=== PATIENT | female | born 1995 | race Caucasian/White ===

== ENCOUNTER 2016-10-28 11:08 | Emergency (ER) | payer OTHER ==
[2016-10-28] MEDS ORDERED: NS 1,000 ML IV ONE ×2 (11:39→12:22)
[2016-10-28] MEDS ORDERED: ONDANSETRON 4 MG/2 ML VIAL IVP ONE ×2 (11:39→14:03)
[2016-10-28 11:47] LABS: % IMMATURE GRANULYOCYTES 0.5 % (0.0-1.1); ABSOLUTE IMMATURE GRANULOCYTES 0.03 10^3/uL (0.00-0.10); ADD DIFF? NO; ADD MORPH? NO; ADD SCAN? NO; ATYPICAL LYMPHOCYTE FLAG 0 (0-99); FRAGMENT RBC FLAG 0 (0-99); HEMOGLOBIN 17.1 g/dL (12.6-16.3); LEFT SHIFT FLG 30 (0-99); LIPEMIA HEMOLYSIS FLAG 90 (0-99); MEAN CELL HEMOGLOBIN 32.3 pg (27.9-34.1); MEAN CELL HEMOGLOBIN CONCENTR. 35.6 g/dL (32.4-36.7); MEAN CELL VOLUME 90.6 fL (81.5-99.8); PLATELET CLUMPS FLAG 0 (0-99); PLATELET COUNT 228 10^3/uL (150-400); RED CELL DISTRIBUTION WIDTH 11.8 % (11.5-15.2)
[2016-10-28 12:07] LABS: ANION GAP 17 mEq/L (8-16); CALCIUM 9.6 mg/dL (8.5-10.4); CARBON DIOXIDE 17 mEq/l (22-31); CHLORIDE 102 mEq/L (97-110); CREATININE 1.1 mg/dL (0.6-1.0); GLOMERULAR FILTRATION RATE > 60; GLUCOSE 90 mg/dL (70-100); POTASSIUM 3.6 mEq/L (3.5-5.2); SODIUM 136 mEq/L (134-144)
[2016-10-28] MEDS ORDERED: ACETAMINOPHEN 500 MG TAB PO ONE (12:22)
[2016-10-28] MEDS ORDERED: ACETAMINOPHEN 500 MG TAB ONE (12:22)
--- NOTE | 2016-10-28 12:23 | EDPHY ---
HPI/HX/ROS/PE/MDM Narrative: CHIEF COMPLAINT: N/V/D HPI: The patient is a 21-year-old female who complains of three days of nausea, vomiting, and diarrhea. The patient reports generalized abdominal pain with diffuse myalgias. Patient states she has felt febrile with aches and chills. She did not eat anything out of the ordinary. No recent travel. 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 LMP 10/09/16. She went to Urgent Care and was sent here for further evaluation. She denies hematemesis or black tarry stools. REVIEW OF SYSTEMS: Aside from elements discussed in the HPI, a comprehensive 10-point review of systems was reviewed and is negative. PMH: Denies. 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 PHYSICAL EXAM: General: Patient is alert, in no acute distress. ENT: Eyes are normal to inspection. ENT inspection normal. Neck: Normal inspection. Full range of motion. Respiratory: No respiratory distress. Breath sounds normal bilaterally. Cardiovascular: Regular rate and rhythm. Strong peripheral pulses. Abdomen: Diffuse tenderness. No guarding or rebound. Back: Normal to inspection. No tenderness to palpation. Skin: Normal color. No rash. Warm and dry. Extremities: Normal appearance. Full range of motion. Neuro: Oriented x3. Normal motor function. Normal sensory function. ED Course: IV was established. Patient received 1L normal saline and 4mg Zofran IV. Plan to check electrolytes and basic lab work. Patient ambulated to use restroom and felt dizzy with shortness of breath. She received a second liter of fluid, IV Toradol, and 1000 mg Tylenol PO. WBC is normal. Lab work is otherwise unremarkable. Stool sample sent. The patient was signed out to Dr. Torres at shift change. Pt still requiring symptomatic treatment. - Data Points Laboratory Results: Laboratory Results 10/28/16 12:40 10/28/16 12:40 10/28/16 10/28/16 12:40 12:40 WBC 5.94 10^3/uL 10^3/uL (3.80-9.50) RBC 5.30 10^6/uL 10^6/uL (4.18-5.33) Hgb 17.1 g/dL H g/dL (12.6-16.3) Hct 48.0 % H % (38.0-47.0) MCV 90.6 fL fL (81.5-99.8) MCH 32.3 pg pg (27.9-34.1) MCHC 35.6 g/dL g/dL (32.4-36.7) RDW 11.8 % % (11.5-15.2) Plt Count 228 10^3/uL 10^3/uL (150-400) MPV 9.0 fL fL (8.7-11.7) Neut % (Auto) 63.7 % % (39.3-74.2) Lymph % (Auto) 17.8 % % (15.0-45.0) [place] % (Auto) 15.7 % H % (4.5-13.0) Eos % (Auto) 2.0 % % (0.6-7.6) Baso % (Auto) 0.3 % % (0.3-1.7) Nucleat RBC Rel Count 0.0 % % (0.0-0.2) Absolute Neuts (auto) 3.78 10^3/uL 10^3/uL (1.70-6.50) Absolute Lymphs (auto) 1.06 10^3/uL 10^3/uL (1.00-3.00) Absolute Monos (auto) 0.93 10^3/uL H 10^3/uL (0.30-0.80) Absolute Eos (auto) 0.12 10^3/uL 10^3/uL (0.03-0.40) Absolute Basos (auto) 0.02 10^3/uL 10^3/uL (0.02-0.10) Absolute Nucleated RBC 0.00 10^3/uL 10^3/uL (0-0.01) Immature Gran % 0.5 % % (0.0-1.1) Immature Gran # 0.03 10^3/uL 10^3/uL (0.00-0.10) Sodium 136 mEq/L mEq/L (134-144) Potassium 3.6 mEq/L mEq/L (3.5-5.2) Chloride 102 mEq/L mEq/L (97-110) Carbon Dioxide 17 mEq/l L mEq/l (22-31) Anion Gap 17 mEq/L H mEq/L (8-16) BUN 14 mg/dL mg/dL (7-23) Creatinine 1.1 mg/dL H mg/dL (0.6-1.0) Estimated GFR > 60 Glucose 90 mg/dL mg/dL (70-100) Calcium 9.6 mg/dL mg/dL (8.5-10.4) Medications Given: Discontinued Medications Acetaminophen (Tylenol) 1,000 mg PO EDNOW ONE Stop: 10/28/16 12:23 Last Admin: 10/28/16 12:30 Dose: 1,000 mg Sodium Chloride (Ns) 1,000 mls @ 0 mls/hr IV ONCE ONE PRN Reason: Wide Open Stop: 10/28/16 11:40 Last Admin: 10/28/16 11:50 Dose: 1,000 mls Sodium Chloride (Ns) 1,000 mls @ 0 mls/hr IV ONCE ONE PRN Reason: Wide Open Stop: 10/28/16 12:23 Last Admin: 10/28/16 12:30 Dose: 1,000 mls Ketorolac Tromethamine (Toradol) 15 mg IVP EDNOW ONE Stop: 10/28/16 12:37 Last Admin: 10/28/16 12:44 Dose: 15 mg Ondansetron HCl (Zofran) 4 mg IVP EDNOW ONE Stop: 10/28/16 11:40 Last Admin: 10/28/16 11:51 Dose: 4 mg Ondansetron HCl (Zofran) 4 mg IVP EDNOW ONE Stop: 10/28/16 14:04 Last Admin: 10/28/16 14:22 Dose: 4 mg General Time Seen by Provider: 10/28/16 11:52 Initial Vital Signs: Initial Vital Signs Temperature (C) 36.3 C 10/28/16 11:16 Heart Rate 102 H 10/28/16 11:16 Respiratory Rate 22 H 10/28/16 11:16 Blood Pressure 114/73 10/28/16 11:16 O2 Sat (%) 99 10/28/16 11:16 O2 Delivery Mode Room Air Allergies/Adverse Reactions: No Known Allergies Allergy (Unverified 10/28/16 11:16) Home Medications: Medication Instructions Recorded Escitalopram Oxalate 10/28/16 Departure - Departure Disposition: Home, Routine, Self-Care Clinical Impression: Gastroenteritis Condition: Good Instructions: Gastroenteritis (ED) Additional Instructions: Drink plenty of fluids. I recommend a clear liquid diet for the next 24 hours with gradual diet advancement. Please followup with your primary care physician with new or worsening symptoms. Referrals: KRISTOPHER,DOCTOR [Other] - As per Instructions Report Scribed for: Ata Talavera Report Scribed by: Lamar Elizabeth Date of Report: 10/28/16 Time of Report: 12:23 Physician Review and Approval Statement: Portions of this note were transcribed by a certified medical transcriptionist. I personally performed a history, physical exam, medical decision making, and confirmed accuracy of information the transcribed note.
[2016-10-28] MEDS ORDERED: KETOROLAC 30 MG/1 ML SDV IVP ONE (12:36)
[2016-10-28 14:03] VITALS: PULSE 68
[2016-10-28] MEDS ORDERED: ONDANSETRON 4MG PREPACK#2 BTL TAKEHOME ONE (15:40)
[2016-10-28 15:45] VITALS: BP 103/58; RESP 14; TEMP 99.1; O2SAT 95
== END 2016-10-28 15:59 | disposition home or self-care (01) ==
DX: K52.9 Noninfective gastroenteritis and colitis, unspecified (principal)
CPT/HCPCS: 96374; J1885; J2405

== ENCOUNTER 2017-04-15 16:31 | Inpatient (IN) | payer OTHER ==
[2017-04-15] MEDS ORDERED: ONDANSETRON 4 MG/2 ML VIAL IVP PRN (17:14)
[2017-04-15] MEDS ORDERED: ACETAMINOPHEN 325 MG TAB PO PRN (17:14)
[2017-04-15] MEDS ORDERED: ONDANSETRON DISINTEGRATING 4 MG TAB PO PRN (17:14)
[2017-04-15] MEDS ORDERED: diphenhydrAMINE 25 MG CAP PO PRN (17:14)
[2017-04-15 18:09] LABS: % IMMATURE GRANULYOCYTES 0.4 % (0.0-1.1); ABSOLUTE IMMATURE GRANULOCYTES 0.04 10^3/uL (0.00-0.10); ADD DIFF? NO; ADD MORPH? NO; ADD SCAN? NO; ATYPICAL LYMPHOCYTE FLAG 0 (0-99); FRAGMENT RBC FLAG 0 (0-99); HEMATOCRIT 39.1 % (38.0-47.0); HEMOGLOBIN 13.6 g/dL (12.6-16.3); LEFT SHIFT FLG 0 (0-99); LIPEMIA HEMOLYSIS FLAG 90 (0-99); MEAN CELL HEMOGLOBIN 32.4 pg (27.9-34.1); MEAN CELL HEMOGLOBIN CONCENTR. 34.8 g/dL (32.4-36.7); MEAN CELL VOLUME 93.1 fL (81.5-99.8); MEAN PLATELET VOLUME 8.9 fL (8.7-11.7); PLATELET CLUMPS FLAG 0 (0-99); PLATELET COUNT 232 10^3/uL (150-400); RED CELL DISTRIBUTION WIDTH 11.9 % (11.5-15.2)
[2017-04-15 18:26] LABS: ALANINE AMINOTRANSFERASE 26 IU/L (9-52); ALBUMIN 3.7 g/dL (3.5-5.0); ALKALINE PHOSPHATASE 82 IU/L (38-126); ANION GAP 13 mEq/L (8-16); ASPARTATE AMINOTRANSFERASE 17 IU/L (14-46); BILIRUBIN,TOTAL 0.5 mg/dL (0.1-1.4); CALCIUM 9.2 mg/dL (8.5-10.4); CARBON DIOXIDE 25 mEq/l (22-31); CHLORIDE 104 mEq/L (97-110); CREATININE 0.9 mg/dL (0.6-1.0); GLOMERULAR FILTRATION RATE > 60; GLUCOSE 91 mg/dL (70-100); SODIUM 142 mEq/L (134-144); TOTAL PROTEIN 6.7 g/dL (6.3-8.2)
[2017-04-15] MEDS: VANCOMYCIN 1.25 GM in D5W 250 ML IV SCH (18:26)
--- NOTE | 2017-04-15 23:28 | GCON ---
[f rep st] CONSULTATION CHIEF COMPLAINT: Left elbow pain, swelling and redness. HISTORY OF PRESENT ILLNESS: The patient is a 21-year-old female who presented to [facility] today, 04/15/2017, with complaints of increased pain, swelling and redness over her left elbo w. She reports that she noticed these symptoms on 04/12/2017, and they have progressively gotten wor se. She was seen at the [facility] today where they did try to aspirate her left elb ow, but were unsuccessful. She was given a shot of Rocephin 1 g and also written for a script for Ba ctrim. At the Urgent Care visit, she was diagnosed with a staph infection of the left elbow, left bu ttock and right hamstring. She states that she does feel feverish and has chills. She was examined in Urgent Care by myself and Dr. Kirby who then made a plan to do a direct admit to [facility] and start her on IV antibiotics. PAST MEDICAL HISTORY: Unremarkable. PAST SURGICAL HISTORY: [place] teeth extraction at age 17. CURRENT MEDICATIONS: control daily and citalopram 40 mg every day. ALLERGIES: Vicodin, dizzy and nausea. SOCIAL HISTORY: Patient is a non-cigarette smoker. She drinks 1 alcoholic beverage per week. No re creational drug use. FAMILY HISTORY: Noncontributory. REVIEW OF SYSTEMS: A 10-point review was done. Negative for any other complaints, concerns or histo ry except for what was noted in HPI. PHYSICAL EXAMINATION: GENERAL: She is 6 feet tall, 155 pounds. Pleasant, NAD. HEENT: NC/AT. EOM I, PERRLA. Ears and nares patent without discharge. Oropharynx is clear. NECK: Nontender to palpa tion. Full range of motion. MUSCULOSKELETAL: Left elbow: There is swelling and erythema present ov er the olecranon with a pustule present. She does have tenderness to palpation throughout the left e lbow and pain with range of motion of the left elbow. There is also a noted area of erythema about a quarter in size on her left buttock and her right hamstring, both of which have a pustule. She has normal sensation to light touch in the left upper extremity. Distal pulses present left upper extrem ity. SKIN: Warm, dry and intact. Areas of erythema that are noted above. NEUROLOGIC: Nonfocal. No deficits noted. PSYCHIATRIC: Alert and oriented x3. Appropriate mood and affect. RADIOGRAPHS: X-rays were taken today of the left elbow and are unremarkable. IMPRESSION: Left septic elbow. PLAN: Patient was seen and examined by myself and Dr. Kirby, and admitted to [facility]. Dr. Kirby did eleazar k to the Infectious Disease doctor and we are starting her on IV vancomycin 1.25 g every 12 hours. A ll questions were answered to the patient's satisfaction. We did discuss with the patient that if he r elbow does not improve on the IV antibiotics, we will have to take her to the operating room for an irrigation and debridement. The patient does understand this. /[id number]/MODL
[2017-04-15] MEDS: OXYCODONE/APAP 5/325 TAB PO PRN (23:41)
[2017-04-15] MEDS: CITALOPRAM 20 MG TAB PO SCH (23:41)
[2017-04-16] MEDS: NS W/ 20 KCl/L 1,000 ML IV SCH ×2 (00:37→20:28)
[2017-04-16] MEDS: VANCOMYCIN 1.25 GM in D5W 250 ML IV SCH ×2 (04:49→17:07)
[2017-04-16] MEDS: OXYCODONE/APAP 5/325 TAB PO PRN ×4 (04:49→19:54)
--- NOTE | 2017-04-16 07:34 | SOAPPROG ---
SOAP Progress Note Assessment/Plan: Assessment: Left elbow infection Plan: Patients left elbow was cultured today and sent to the lab F/U on cultures Continue IV antibiotics: Vanco Pain medicine as needed Ice/elevation left elbow Ortho to follow Subjective: Patient states that her left elbow is still painful but the pain is improving. The redness over the olecranon is still present but seems to be improving. Objective: Vital Signs Temp Pulse Resp BP Pulse Ox 37.4 C 92 16 91/45 L 93 04/16/17 04:00 04/16/17 04:00 04/16/17 04:00 04/16/17 04:00 04/16/17 04:00 Laboratory Results 04/15/17 18:00 04/15/17 18:00 04/15/17 04/16/17 04/17/17 05:59 05:59 05:59 Intake Total 900 Output Total 1150 Balance -250 Physical exam of the LUE: there is tenderness to palpation over the left elbow, decreased pain since yesterday. She is able to flex and extend her elbow with slight discomfort. Normal sensation to light touch in the LUE. Distal pulse present in the LUE. ICD10 Worksheet Patient Problems: Problems Problem Status Onset Infection of elbow Acute - ICD10 Problem Qualifiers (1) Infection of elbow
[2017-04-16] MEDS: DESOGESTREL ETHINYL ESTRADIOL PO SCH (08:37)
[2017-04-16] MEDS ORDERED: CITALOPRAM 20 MG TAB PO SCH (09:00)
--- NOTE | 2017-04-16 15:13 | ASMTCMCOM ---
CM Note CM Note Notes: Pt admitted from [facility] for an infection in her left elbow. Pt currently on IV Vancomycin. Per MD notes, cultures obtained and sent today. Pt lives here in [place]. Anticipate pt may be able to discharge home independently if elbow infection clears, if not, pt may require prolonged IV antibiotics. CM will cont to follow for any potential needs. Current discharge plan: TBD Date Signed: 04/16/2017 03:13 PM Electronically Signed By:Mable Roberts RN
[2017-04-16] MEDS: CITALOPRAM 20 MG TAB PO SCH (21:25)
[2017-04-17] MEDS: VANCOMYCIN 1.25 GM in D5W 250 ML IV SCH ×2 (05:07→17:25)
--- NOTE | 2017-04-17 07:17 | SOAPPROG ---
SOAP Progress Note Assessment/Plan: Assessment: Left elbow infection Plan: Patients left elbow was cultured today and sent to the lab Gram stain shows rare gram positive cocci, Cultures are still pending Continue IV antibiotics: Kristie Kirby did open the pustule/scab with an 11blade: only serous fluid was expressed Patient was placed in a posterior splint to limit range of motion Pain medicine as needed Ice/elevation left elbow Ortho to follow Subjective: Today the patient states that her left elbow is still painful but the pain is improving. She has decreased pain with Range of motion. There is still erythema over the olecranon but it does look better. Yesterday skin swab was taken of her left elbow and sent for gram stain and cultures. Objective: Vital Signs Temp Pulse Resp BP Pulse Ox 37.6 C 70 16 106/66 95 04/17/17 06:06 04/17/17 06:06 04/17/17 06:06 04/17/17 06:06 04/17/17 06:06 Microbiology 04/16/17 13:15 Gram Stain - Final Elbow - Swab Laboratory Results 04/15/17 18:00 04/15/17 18:00 04/16/17 04/17/17 04/18/17 05:59 05:59 05:59 Intake Total 900 1950 Output Total 1150 801 Balance -250 1149 Physical exam of the LUE: there is tenderness to palpation over the left elbow, decreased pain since a day ago She is able to flex and extend her elbow with decreased discomfort. There is a dime size pustule/scab formation on the tip of her olecranon. Normal sensation to light touch in the LUE. Distal pulse present in the LUE. Gram stain: rare gram positive cocci Culture: pending ICD10 Worksheet Patient Problems: Problems Problem Status Onset Infection of elbow Acute - ICD10 Problem Qualifiers (1) Infection of elbow
--- NOTE | 2017-04-17 07:30 | GCON ---
[f rep st] CONSULTATION INPATIENT INFECTIOUS DISEASE CONSULTATION REFERRING PHYSICIAN: Sheldon Kirby MD REASON FOR REFERRAL: Left elbow infection. HISTORY OF PRESENT ILLNESS: Patient is a 21-year-old female, who was in her usual state of good heal th until approximately 4 days ago. Patient noted that she went to a hot yoga class a couple of times in the last week, and beginning on 04/12, she started noticing increased pain, swelling, and redness just over her left elbow. She also developed 2 areas of inflammation on the backs of her upper thig hs close to her buttocks. Patient was seen at [facility] initially and an aspiration of the elbow was attempted but was unsuccessful. She was given an intramuscular dose of 1 g of ceft riaxone and given Bactrim orally. Patient followed up at [facility] and was seen by Dr. Kirby, who [facility] and began monotherapy with IV vancomycin . Currently, she is resting comfortably in her hospital bed. Her areas that are affected are exquis itely tender and she requires narcotic for pain relief. Otherwise, she is nontoxic appearing. PAST MEDICAL HISTORY: None. PAST SURGICAL HISTORY: Status post wisdom tooth extraction. ANTIBIOTICS: Vancomycin. ALLERGIES: The patient notes an allergy to Vicodin. 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 She denies any tobacc o use, only occasional alcoholic drink. No drug use. She is a [place] of [place], [place]. FAMILY HISTORY: Reviewed but noncontributory. REVIEW OF SYSTEMS: Other than that detailed above in the history of present illness, a comprehensive 10-system review is negative. PHYSICAL EXAMINATION: VITAL SIGNS: Temperature maximum was 37.9, temperature current is 37.2, heart rate, is 77, respiratory rate is 16, blood pressure is 111/71. GENERAL: The patient is a well-form ed, well-nourished young female, in no acute distress. She is nontoxic in appearance. She is alert and oriented x3. She is pleasant in demeanor. HEENT: Normocephalic for age. Atraumatic. No scler al icterus. No oral lesion. No drainage from the nares. Eyes, lids, and conjunctivae are within no rmal limits. Pupils are equal and round bilaterally. NECK: Supple. No meningismus. LUNGS: Clear to auscultation bilaterally with good effort. HEART: Regular rate and rhythm. No significant ana pheral edema. SKIN: Warm and dry to the touch. Patient has 2 erythematous, very tender lesions on the posterior aspects of her upper thighs bilaterally. There is some fluctuance to both lesions, but no drainage. As stated, she is exquisitely tender in these areas. The left elbow also has a soft t issue lesion at the olecranon. It also appears to have some fluctuance to it. It is the most tender of the 2 lesions. It is warm to touch. The warmth of her soft tissue of her left upper extremity e xtends shelter up the biceps and shelter down the forearm. LABORATORY DATA: Patient has a CBC dated 04/15/2017, shows a white blood cell count of 10.9 _, hemoglobin of 13.6, hematocrit of 39.1, and a platelet count of 232, differential is left-shifted with 80% segmented neutrophils. Serum chemistries on 04/15/2017 are all within normal limits. Creat inine 0.9. AST is 17, ALT is 26. MICROBIOLOGIC DATA: Patient has an elbow swab dated April 16, 2017. Gram stain shows 2+ polymorp honuclear white cells and rare gram-positive cocci. Culture is pending. ASSESSMENT: Likely multifocal soft tissue Staphylococcus aureus disease. Methicillin-resistant Stap hylococcus aureus is a consideration. The patient is covered very correctly with monotherapy with va ncomycin. Would continue at the present dose of 1.25 g IV q.12 hours. Culture results will hopefull y reveal a specific sensitivity panel. Did discuss with Dr. Kirby about the utility of incision and drainage, especially to the left elbow lesion. We will observe for effective antibiotic overnight an d if the patient remains exquisitely tender, she will be n.p.o. after midnight in case operative marley gement is necessary. I explained this to the patient, who is in agreement. PLAN: 1. Continue monotherapy with intravenous vancomycin. 2. Follow appearance of the lesions. /[id number]/MODL
[2017-04-17] MEDS: OXYCODONE/APAP 5/325 TAB PO PRN ×3 (08:31→21:27)
[2017-04-17] MEDS: DESOGESTREL ETHINYL ESTRADIOL PO SCH (10:18)
[2017-04-17] MEDS: NS W/ 20 KCl/L 1,000 ML IV SCH (10:37)
[2017-04-17] MEDS ORDERED: BISACODYL 10 MG SUPP PR PRN (11:14)
[2017-04-17] MEDS ORDERED: POLYETHYLENE GLYCOL 3350 17 GM PKT PO PRN (11:14)
[2017-04-17] MEDS ORDERED: MAGNESIUM HYDROXIDE 30 ML UDCUP PO PRN (11:14)
[2017-04-17] MEDS ORDERED: LACTULOSE 20 GM/30 ML UDCUP PO PRN (11:14)
--- NOTE | 2017-04-17 12:22 | PCMIDPN ---
Assessment/Plan: Assessment: Multifocal subcutaneous Staph aureus infection. The lesions seem to be less tender today. Will continue vancomycin therapy. Will check vancomycin trough levels. Plan: 1. Continue IV vancomycin. Check trough levels prior to the dose tomorrow morning. 2. Follow clinical appearance of the cutaneous lesions. 3. Follow identification of Staph aureus growing in culture. 04/17/17 16:39 Subjective: Patient doing fairly well. States that her elbow continues to be painful. Upper thigh lesions posteriorly are slightly improved. Objective: Vancomycin # 2 Vital Signs Temp Pulse Resp BP Pulse Ox 36.5 C 79 16 102/60 96 04/17/17 08:00 04/17/17 08:00 04/17/17 08:00 04/17/17 08:00 04/17/17 08:00 Microbiology 04/16/17 13:15 Gram Stain - Final Elbow - Swab Laboratory Results 04/15/17 18:00 04/15/17 18:00 04/16/17 04/17/17 04/18/17 05:59 05:59 05:59 Intake Total 900 1950 Output Total 1150 801 Balance -250 1149 - Physical Exam General Appearance: WD/WN, alert, no apparent distress, non-toxic Cardiac/Chest: regular rate, rhythm, No tachycardia Skin: normal color, warm/dry, rash (Left elbow, right posterior thigh and left inferior buttock lesion stable.), No fluctuance Neuro/Psych: alert, normal mood/affect, oriented x 3 ICD10 Worksheet Patient Problems: Problems Problem Status Onset Infection of elbow Acute
[2017-04-17] MEDS: CITALOPRAM 20 MG TAB PO SCH (21:27)
[2017-04-17] MEDS: SENNOSIDES/DOCUSATE SODIUM TAB PO SCH (21:27)
[2017-04-18] MEDS: VANCOMYCIN 1.25 GM in D5W 250 ML IV SCH (05:40)
--- NOTE | 2017-04-18 07:24 | SOAPPROG ---
SOAP Progress Note Assessment/Plan: Assessment: The elbow cellulitis is coming to a point. indurated now. will wash out olecranon bursa today. lesions on buttock also centralizing Plan: to OR this afternoon for I and D elbow bursa. NPO after breakfast 04/18/17 07:21 Subjective: Lesions on buttocks are less painful. Elbow about the same Objective: Vital Signs Temp Pulse Resp BP Pulse Ox 37.2 C 62 16 109/67 93 04/18/17 00:00 04/18/17 00:00 04/18/17 00:00 04/18/17 00:00 04/18/17 00:00 Microbiology 04/16/17 13:15 Gram Stain - Final Elbow - Swab Laboratory Results 04/15/17 18:00 04/15/17 18:00 04/17/17 04/18/17 04/19/17 05:59 05:59 05:59 Intake Total 1950 1075 Output Total 801 Balance 1149 1075 VSS, afeb Elbow coming to a head and more indurated Buttock lesions slightly improved ICD10 Worksheet Patient Problems: Problems Problem Status Onset Infection of elbow Acute
--- NOTE | 2017-04-18 10:51 | PCMIDPN ---
Assessment/Plan: Assessment: Multifocal subcutaneous Staph aureus infection. Lesions look to be coming to a head. Pathogen is MSSA. Will change our antibiotic to cefazolin from Vancomycin. Plan: 1. Discontinue IV vancomycin. Start cefazolin 2 g IV q 8 hours. 2. Follow clinical appearance of the cutaneous lesions. Subjective: Patient is resting comfortably. No fevers. Evaluation by surgery this morning noted. Patient preparing for I and D later. Objective: Vancomycin # 3 Vital Signs Temp Pulse Resp BP Pulse Ox 36.9 C 60 14 109/64 94 04/18/17 08:48 04/18/17 08:48 04/18/17 08:48 04/18/17 08:48 04/18/17 08:48 Microbiology 04/16/17 13:15 Gram Stain - Final Elbow - Swab Laboratory Results 04/15/17 18:00 04/15/17 18:00 04/17/17 04/18/17 04/19/17 05:59 05:59 05:59 Intake Total 1950 1075 Output Total 801 Balance 1149 1075 - Physical Exam General Appearance: WD/WN, alert, no apparent distress, non-toxic Respiratory: lungs clear, normal breath sounds, No respiratory distress Cardiac/Chest: regular rate, rhythm, No tachycardia Extremities: No non-tender, No normal inspection Skin: normal color, warm/dry, No rash ICD10 Worksheet Patient Problems: Problems Problem Status Onset Infection of elbow Acute
[2017-04-18] MEDS: SENNOSIDES/DOCUSATE SODIUM TAB PO SCH ×2 (13:09→21:18)
[2017-04-18] MEDS: DESOGESTREL ETHINYL ESTRADIOL PO SCH (13:09)
[2017-04-18] MEDS ORDERED: ceFAZolin 2 GM/DEXTROSE 100 ML IV SCH (14:00)
[2017-04-18] MEDS: ceFAZolin 2 GM/SWFI 2 GM/20 ML SYR IVP SCH ×2 (15:07→21:16)
[2017-04-18 15:57] VITALS: RESP 16
[2017-04-18] MEDS ORDERED: LR 1,000 ML IV ONE (15:58)
[2017-04-18] MEDS ORDERED: ceFAZolin 1 GM VIAL ONE (16:13)
[2017-04-18] MEDS ORDERED: MIDAZOLAM 2 MG/2 ML VIAL IVP ONE (16:30)
--- NOTE | 2017-04-18 16:32 | PDANEPAE ---
ANE Past Medical History - Cardiovascular History Hx Hypertension: No Hx Arrhythmias: No Hx Chest Pain: No Hx Coronary Artery / Peripheral Vascular Disease: No Hx CHF / Valvular Disease: No Hx Palpitations: No - Pulmonary History Hx COPD: No Hx Asthma/Reactive Airway Disease: No Hx Recent Upper Respiratory Infection: No Hx Oxygen in Use at Home: No Hx Sleep Apnea: No Sleep Apnea Screening Result - Last Documented: Negative - Endocrine History Hx Diabetes: No Hypothyroid: No Hyperthyroid: No Obesity: no - Neurological & Psychiatric Hx Hx Neurological and Psychiatric Disorders: Yes Neurological / Psychiatric History Comment: depression ANE Review of Systems Review of Systems: - Exercise capacity METS (RN): 5 METS ANE Patient History - Allergies Allergies/Adverse Reactions: hydrocodone [From Vicodin] Allergy (Verified 04/15/17 19:34) - Home Medications Home Medications: Citalopram Hydrobromide [Celexa] 40 mg PO HS 04/15/17 [Last Taken 04/14/17] Desogestrel-Ethinyl Estradiol [Apri] 1 each PO DAILY 04/15/17 [Last Taken ] - NPO status NPO Since - Liquids (Date): 04/18/17 NPO Since - Liquids (Time): 09:30 NPO Since - Solids (Date): 04/17/17 NPO Since - Solids (Time): 18:00 - Anes Hx Anes Hx: no prior problems - Smoking Hx Smoking Status: Never smoked - Alcohol Use Alcohol Use: Occasionally - Family Anes Hx Family Anes Hx: neg - N/A ANE Labs/Vital Signs - Labs Result Diagrams: 04/15/17 18:00 04/15/17 18:00 - Vital Signs Blood Pressure: 118/63 Heart Rate: 68 Respiratory Rate: 16 O2 Sat (%): 95 Height: 182.88 cm Weight: 68.039 kg ANE Physical Exam - Airway Neck exam: FROM Mallampati Score: Class 1 Mouth exam: normal dental/mouth exam - Pulmonary Pulmonary: no respiratory distress, no rales or rhonchi, clear to auscultation - Cardiovascular Cardiovascular: regular rate and rhythym, no murmur, rub, or gallop - ASA Status ASA Status: I ANE Anesthesia Plan Anesthesia Plan: GA w LMA
[2017-04-18] MEDS ORDERED: fentaNYL 100 MCG/2 ML INJ ONE ×3 (16:36→17:30)
[2017-04-18] MEDS ORDERED: DEXAMETHASONE 4 MG/ML VIAL ONE (16:36)
[2017-04-18] MEDS ORDERED: PROPOFOL 200 MG/20 ML VIAL ONE (16:36)
[2017-04-18] MEDS ORDERED: ONDANSETRON 4 MG/2 ML VIAL ONE (16:36)
[2017-04-18] MEDS ORDERED: KETOROLAC 30 MG/1 ML SDV ONE (16:36)
[2017-04-18] MEDS ORDERED: LIDOCAINE 2% 5 ML SDV ONE (16:38)
[2017-04-18] MEDS ORDERED: OXYCODONE/APAP 5/325 TAB PO PRN (17:03)
[2017-04-18] MEDS ORDERED: HYDROCODONE/APAP 5/325 TAB PO PRN (17:03)
[2017-04-18] MEDS ORDERED: ONDANSETRON 4 MG/2 ML VIAL IVP PRN (17:03)
[2017-04-18] MEDS ORDERED: MEPERIDINE 25 MG/ML SYR IVP PRN (17:03)
[2017-04-18] MEDS ORDERED: LR 500 ML IV PRN (17:03)
[2017-04-18] MEDS ORDERED: NALOXONE HCL 0.4 MG/ML INJ IVP PRN (17:03)
[2017-04-18] MEDS ORDERED: ACETAMINOPHEN 500 MG TAB PO PRN (17:03)
[2017-04-18] MEDS ORDERED: PROMETHAZINE HCL 25 MG/ML INJ IVP PRN (17:03)
[2017-04-18] MEDS ORDERED: DIPHENOXYLATE/ATROPINE LOMOTIL 1 TAB PO PRN (17:24)
[2017-04-18] MEDS ORDERED: TEMAZEPAM 15 MG CAP PO PRN (17:24)
[2017-04-18] MEDS ORDERED: LR 1,000 ML IV SCH ×2 (17:30)
[2017-04-18] MEDS: fentaNYL 100 MCG/2 ML INJ IVP PRN ×2 (17:32→17:43)
--- NOTE | 2017-04-18 17:51 | POSTANESTH ---
Post Anesthetic Evaluation Cardiovascular Status: Normal, Stable Respiratory Status: Normal, Stable Level of Consciousness/Mental Status: Can Participate in Eval Pain Control: Adequate, Prn Tx Ordered Nausea/Vomiting Control: Adequate, Prn Tx Ordered Complications Possibly Related to Anesthesia: None Noted
[2017-04-18] MEDS: CITALOPRAM 20 MG TAB PO SCH (21:17)
[2017-04-18] MEDS: OXYCODONE/APAP 5/325 TAB PO PRN (21:17)
[2017-04-19] MEDS: OXYCODONE/APAP 5/325 TAB PO PRN (03:37)
--- NOTE | 2017-04-19 04:14 | GOP ---
[f rep st] OPERATIVE REPORT DATE OF OPERATION: 04/18/2017 SURGEON: Sheldon Kirby MD ANESTHESIA: General. PREOPERATIVE DIAGNOSIS: Left septic olecranon bursitis. POSTOPERATIVE DIAGNOSIS: Left septic olecranon bursitis. PROCEDURE PERFORMED: Incision and drainage with debridement, left olecranon bursa. FINDINGS: DESCRIPTION OF PROCEDURE: Patient taken to the operating room, administered general anesthesia, plac ed in supine position. The left upper extremity is prepped and draped in normal sterile fashion. A slightly curvilinear incision was made through the dermal tissues around the olecranon process. It w as carried down through the dermal tissues, down into the olecranon bursa. Thorough lavage was perfo rmed. A small amount of purulent fluid was exuded. Lavage was performed with copious amounts of harris ine solution with 2 g of Ancef within the solution. Another 3000 cc bag was used to irrigate with pl ain saline. We then closed loosely over a iodoform gauze drain. This was performed with a #3-0 nylo n suture. Sterile compression dressings were applied followed by posterior splint. The patient tole rated the procedure well, was transferred back to recovery in stable condition. No operative complic ations. COMPLICATIONS: None. /[id number]/MODL
[2017-04-19] MEDS: ceFAZolin 2 GM/SWFI 2 GM/20 ML SYR IVP SCH ×2 (05:27→14:21)
[2017-04-19 05:40] LABS: HEMATOCRIT 39.3 % (38.0-47.0); HEMOGLOBIN 13.5 g/dL (12.6-16.3)
[2017-04-19 07:49] VITALS: BP 100/50; PULSE 55; TEMP 99; O2SAT 92
[2017-04-19] MEDS: DESOGESTREL ETHINYL ESTRADIOL PO SCH (08:39)
[2017-04-19] MEDS: SENNOSIDES/DOCUSATE SODIUM TAB PO SCH (08:39)
--- NOTE | 2017-04-19 08:52 | SOAPPROG ---
SOAP Progress Note Assessment/Plan: Assessment/Plan: s/p I&D septic olecranon bursitis POD#1 - Continue pain management - Elevation and ice to control pain and swelling - Splint to stay clean, dry and covered for bathing - Antibiotics per ID - Likely discharge today with follow-up in clinic 04/22/2017 04/19/17 08:49 Subjective: Pt states she is doing well and pain is much improved s/p surgery. Pt denies fever, chills, chest pain, SOB, abdominal pain, N/V/D, numbness, tingling, weakness, and calf pain. Objective: Vital Signs Temp Pulse Resp BP Pulse Ox 37.2 C 55 L 16 100/50 L 92 04/19/17 07:46 04/19/17 07:46 04/19/17 07:46 04/19/17 07:46 04/19/17 07:46 Microbiology 04/16/17 13:15 Gram Stain - Final Elbow - Swab Wound Culture - Final Staphylococcus Aureus Laboratory Results 04/19/17 05:00 04/15/17 18:00 04/18/17 04/19/17 04/20/17 05:59 05:59 05:59 Intake Total 1075 900 200 Output Total 5 Balance 1075 895 200 Physical Exam - Physical Exam General Appearance: alert, no apparent distress Cardiac/Chest: normal peripheral pulses Skin: normal color, warm/dry, other (splint intact L elbow without surrounding erythema or calor) Extremities: normal inspection, normal capillary refill, No pedal edema, No calf tenderness, No swelling, No Jennifer's sign Neuro/Psych: no motor/sensory deficits, alert, normal mood/affect, oriented x 3 ICD10 Worksheet Patient Problems: Problems Problem Status Onset Infection of elbow Acute
[2017-04-19] MEDS ORDERED: ALTEPLASE 2 MG VIAL IVP PRN (09:01)
--- NOTE | 2017-04-19 09:01 | PCMIDPN ---
Assessment/Plan: Assessment/Plan: 1. Left olecranon septic bursitis along with two subcutaneous skin lesions secondary to MSSA: - s/p I & D on 04/18/17 - creatinine stable on 04/15/17 - two skin lesions on thigh flat, with induration but no fluctuance. -Discussed picc line, r/b etc. will order - will d/w case management regarding IV atbx in the OP -Discussed options with patient. She prefers continous infusion - will set up f/u appt with Dr. Vaughan in the OP - plan of care discussed at length with patient and mom at bedside - care coordinated with Rn, and case management. Meds ancef 2g q8- Subjective: afebrile. feels better today. less pain involving the two lesions on back of thigh. left elbow wiht less pain. has not moved bowels. denies nausea, abd pain , or diarrhea. Objective: Vital Signs Temp Pulse Resp BP Pulse Ox 37.2 C 55 L 16 100/50 L 92 04/19/17 07:46 04/19/17 07:46 04/19/17 07:46 04/19/17 07:46 04/19/17 07:46 Microbiology 04/16/17 13:15 Gram Stain - Final Elbow - Swab Wound Culture - Final Staphylococcus Aureus Laboratory Results 04/19/17 05:00 04/15/17 18:00 04/18/17 04/19/17 04/20/17 05:59 05:59 05:59 Intake Total 1075 900 200 Output Total 5 Balance 1075 895 200 - Physical Exam General Appearance: alert, no apparent distress Respiratory: lungs clear Cardiac/Chest: regular rate, rhythm Extremities: other (left elbow in post op dressing) Abdomen: normal bowel sounds, non-tender, soft, No distended Skin: other (posterior thigh: two red spots, flat, with mild peeling noted. some induraiton present. slight tenderness.) - Time Spent With Patient Time Spent with Patient: greater than 35 minutes Time Spent with Patient: Greater than 35 minutes spent on this patients care, greater than 50% of time spent counseling, educating, and coordinating care regarding the above mentioned plan. ICD10 Worksheet Patient Problems: Problems Problem Status Onset Infection of elbow Acute
--- NOTE | 2017-04-19 09:06 | PDIAF ---
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 PICC Care - Routine: Yes - Labs/Radiology CBC w/diff Date: 04/26/17 CMP Date: 04/26/17 CRP Date: 04/26/17 Call or Fax Lab and Imaging Results to: fax to Dr. Vaughan [phone] - Follow Up Care Current Providers and Referrals: NEDA,DARIN [Other] Sheldon Kirby MD [Medical Doctor] - Ruben Vaughan MD [Medical Doctor] - (f/u in two weeks.)
--- NOTE | 2017-04-19 17:33 | ASMTCMCOM ---
CM Note CM Note Notes: Pt requires home IV antibiotics, Ancef continuous. [facility] accepts pt w [facility] RN. Picc report unavailable at close of business. Orders sent in [employer]. Date Signed: 04/19/2017 05:33 PM Electronically Signed By:VAERY Nichols
--- NOTE | 2017-04-20 09:23 | ASDISCHSUM ---
Discharge Information Plan Status:IV ABX/Infusion Medically Cleared to Leave: Discharge Date:04/19/2017 04:12 PM D/C Disposition: ADT D/C Disposition:Home, Routine, Self-Care Projected Discharge Date:04/19/2017 11:00 AM Transportation at D/C: Discharge Delay Reason: Follow-Up Date:04/19/2017 11:00 AM Discharge Slot: Final Diagnosis: Placement Information Referral Type:Home Infusion Referral ID:[id number] Provider Name:[facility] Address 1:[address] Address 2: City:[place] Selection Factors: State:[place] Patient Contact Information Contact Name:IRINEO Relationship:Mother Address: Work Phone: City:[place] Alternate Phone: [facility]/Zip Code:[place] Email: Financial Information Financial Class:HMO and PPO Plans Primary Plan Desc:[employer] Primary Plan Number:[id number] Secondary Plan Desc: Secondary Plan Number: Assessment Information [facility] CM Progress Note CM Note CM Note Notes: [facility] in her left elbow. Pt currently on IV Vancomycin. Per MD notes, cultures obtained and sent today. Pt lives here in [place]. Anticipate pt may be able to discharge home independently if elbow infection clears, if not, pt may require prolonged IV antibiotics. CM will cont to follow for any potential needs. Current discharge plan: TBD Date Signed: 04/16/2017 03:13 PM Electronically Signed By:Mable Roberts RN [facility] CM Progress Note CM Note CM Note Notes: Pt requires home IV antibiotics, Ancef continuous. [facility] accepts pt w [facility] RN. Picc report unavailable at close of business. Orders sent in [employer]. Date Signed: 04/19/2017 05:33 PM Electronically Signed By:AVERY Nichols Intervention Information
--- NOTE | 2017-04-22 11:00 | PDDCSUM ---
Discharge Summary Discharge Summary: 21y/o F admitted to [facility] from the [facility] urgent care for management of L elbow septic olecranon bursitis on 04/15/2017. Symptoms were initially treated with IV antibiotics per ID and pain management. Bursitis failed to improve with IV antibiotics alone and patient was scheduled for I&D L elbow olecranon bursitis with Dr. Kirby on 04/18/2017, surgery without any complications. Symptoms improved post-operatively. Pain was well managed. Antibiotics per ID. PICC line was placed before discharge for IV antibiotics as outpatient. Pt was given specific post-operative instructions, and scheduled follow-up for re-evaluation with Dr. Kirby 04/22/2017.
== END 2017-04-19 16:12 | disposition home or self-care (01) | DRG 502 ==
LOC: F3N 17:27 → OBSVTOIN 04-16 10:23
PROVIDERS: ADMIT Orthopaedic Surgery Sports Medicine; ATTEND Orthopaedic Surgery Sports Medicine
PROC: 0M940ZZ Drainage of Left Elbow Bursa and Ligament, Open Approach (ICD-10-PCS; principal; 2017-04-18 14:15)
PROC: 02HV33Z Insertion of Infusion Device into Superior Vena Cava, Percutaneous Approach (ICD-10-PCS; 2017-04-19)
DX: M70.22 Olecranon bursitis, left elbow (principal); B95.61 Methicillin susceptible Staphylococcus aureus infection as the cause of diseases classified elsewhere; F32.9 Major depressive disorder, single episode, unspecified
CPT/HCPCS: C1751; G0378; J0690; J1100; J1885; J2405; J2704; J3010; J3370